=== PATIENT | male | born 1975 | race Asian ===

== ENCOUNTER 2022-04-23 11:28 | Emergency (ER) | payer MEDICAID ==
[2022-04-23] MEDS ORDERED: predniSONE 20 MG TABLET PO STA (11:43)
[2022-04-23] MEDS ORDERED: IPRATROPIUM/ALBUTEROL 3 ML NEB INH STA (11:43)
--- NOTE | 2022-04-23 11:58 | ED Physician Documentation ---
History of Present Illness - Stated complaint Stated Complaint: MED REFILL - Chief complaint Chief Complaint: Resp - History obtained from History obtained from: Patient - History of Present Illness Pain level max: 0 Pain level now: 0 - Additonal information Additional information: Patient is a 46-year-old male who just moved here from [place]. He states that he is almost out of his albuterol inhaler and almost out of his DuoNeb nebulizer solution. He is requesting refills of both. Has had increasing shortness of breath over the past 2 to 3 days. No fevers. No chills. No cough. No nausea or vomiting. No chest pain. The symptoms are relieved with his albuterol and DuoNeb. Patient is a former smoker. Review of Systems Constitutional: denies: Fever, Chills PD PAST MEDICAL HISTORY - Present Medications Home Medications: Ambulatory Orders Medication Instructions Recorded Confirmed Albuterol Sulf [Ventolin Hfa 1 - 2 puffs INH Q4HR PRN #1 each 04/23/22 Inhaler] Ipratropium/Albuterol [Duoneb] 3 ml INH BID #60 each 04/23/22 predniSONE [Deltasone] 40 mg PO DAILY #10 tablet 04/23/22 - Allergies Allergies/Adverse Reactions: Allergies Allergy/AdvReac Type Severity Reaction Status Date / Time No Known Drug Allergies Allergy Verified 04/23/22 11:33 PD ED PE NORMAL - Vitals Vital signs reviewed: Yes - General General: Alert and oriented X 3, No acute distress - HEENT HEENT: PERRL, Moist mucous membranes - Neck Neck: Supple, no meningeal sign - Cardiac Cardiac: RRR - Respiratory Respiratory: No respiratory distress, Other (Mildly diminished breath sounds bilaterally with mild wheezing) - Abdomen Abdomen: Soft, Non tender, Non distended - Derm Derm: Warm and dry - Extremities Extremities: No edema, No calf tenderness / cord - Neuro Neuro: Alert and oriented X 3 - Psych Psych: Normal mood, Normal affect Results - Vitals Vitals: Vital Signs - 24 hr 04/23/22 04/23/22 04/23/22 11:33 12:03 12:20 Temperature 36.5 C Heart Rate 96 89 94 Respiratory 18 16 18 Rate Blood Pressure 129/67 124/77 O2 Saturation 97 98 Oxygen O2 Source Room air PD Medical Decision Making - ED course Complexity details: considered differential, d/w patient ED course: 46-year-old male requesting refill of his asthma medications. We will refill his albuterol and DuoNeb solution. We will also prescribe a short course of steroids. We will have him follow-up with a local clinic and establish with a local PCP for further care. Patient counseled regarding signs and symptoms for which I believe and urgent re-evaluation would be necessary. Patient with good understanding of and agreement to plan and is comfortable going home at this time This document was made in part using voice recognition software. While efforts are made to proofread this document, sound alike and grammatical errors may occur. No hypoxia. No respiratory distress. Departure - Departure Disposition: Home, Self Care Clinical Impression: Asthma Qualifiers: Asthma severity: unspecified severity Asthma persistence: unspecified Asthma complication type: unspecified Qualified Code(s): J45.909 - Unspecified asthma, uncomplicated Condition: Good Instructions: ED Reactive Airway Disease Follow-Up: [facility] [Provider Group] [facility] [Provider Group] [facility] [Provider Group] Prescriptions: Albuterol Sulf [Ventolin Hfa Inhaler] 1 - 2 puffs INH Q4HR PRN #1 each PRN Reason: Shortness Of Air/Wheezing predniSONE [Deltasone] 40 mg PO DAILY #10 tablet Ipratropium/Albuterol [Duoneb] 3 ml INH BID #60 each Comments: Please follow-up with either the walk-in clinic or one of the primary care clinics for further care. Please return if you worsen. The prescriptions were sent to the [facility] pharmacy. Discharge Date/Time: 04/23/22 12:20
[2022-04-23 12:20] VITALS: BP 124/77
== END 2022-04-23 12:20 | disposition home or self-care (01) ==
LOC: ED 11:28
DX: Z76.0 Encounter for issue of repeat prescription (principal); J45.909 Unspecified asthma, uncomplicated; Z87.891 Personal history of nicotine dependence
CPT/HCPCS: 94640; 94664; 99283; 99284; J7512

== ENCOUNTER 2022-06-06 22:07 | Emergency (ER) | payer MEDICAID ==
[2022-06-06] MEDS ORDERED: IPRATROPIUM/ALBUTEROL 3 ML NEB INH STA (22:28)
[2022-06-06] MEDS ORDERED: predniSONE 20 MG TABLET PO STA (22:28)
[2022-06-06] MEDS ORDERED: SODIUM CHLORIDE 0.9% 1,000 ML IV STA (22:29)
--- NOTE | 2022-06-06 23:41 | XRAY Report ---
PROCEDURE: Chest 1 View X-Ray INDICATIONS: SOA TECHNIQUE: One view of the chest was acquired. COMPARISON: None. FINDINGS: Surgical changes and devices: None. Lungs and pleura: No pleural effusions or pneumothorax. Lungs are clear. Mediastinum: Mediastinal contours appear normal. Heart size is normal. Bones and chest wall: No suspicious bony lesions. Overlying soft tissues appear unremarkable. IMPRESSION: 1. No acute cardiopulmonary disease. Reviewed by: Calos Funes MD on 06/06/2022 11:39 PM PDT Approved by: Calos Funes MD on 06/06/2022 11:39 PM PDT Station ID: [id number]
[2022-06-06] MEDS ORDERED: METOPROLOL SUCCINATE 25 MG TABLET PO STA (23:56)
[2022-06-07] MEDS ORDERED: ALBUTEROL NEB 2.5 MG/3 ML INH STA (00:13)
[2022-06-07] MEDS ORDERED: METOPROLOL 5 MG/5 ML VIAL IVP STA (00:48)
[2022-06-07 00:55] LABS: BASOPHILS % (AUTO) 0.7 %; EOSINOPHILS % (AUTO) 10.4 %; HCT - HEMATOCRIT 45.8 % (42.0-52.0); HGB - HEMOGLOBIN 15.1 g/dL (14.0-18.0); MEAN CORPUSCULAR HEMOGLOBIN 26.4 pg (27.0-31.0); MEAN CORPUSCULAR VOLUME 80.2 fL (80.0-94.0); MEAN PLATELET VOLUME 9.9 fL (7.4-11.4); MONOCYTES % (AUTO) 9.1 %; NEUTROPHILS % (AUTO) 43.6 %; PLT - PLATELET COUNT 186 10^3/uL (130-450); RED BLOOD COUNT 5.71 10^6/uL (4.70-6.10); RED CELL DISTRIBUTION WIDTH 15.4 % (12.0-15.0); WHITE BLOOD COUNT 10.7 x10^3/uL (4.8-10.8)
[2022-06-07 01:01] LABS: ABNORMAL LYMPHS % (MANUAL) 0 %
[2022-06-07 01:13] LABS: BAND NEUTROPHILS % (MANUAL) 1 %; DIFFERENTIAL COMMENT MANUAL DIFFERENTIAL; EOSINOPHILS # (MANUAL) 1.2 10^3/uL (0-0.7); LYMPHOCYTES # (MANUAL) 3.7 10^3/uL (1.5-3.5); LYMPHOCYTES % (MANUAL) 35 %; MONOCYTES # (MANUAL) 0.2 10^3/uL (0.0-1.0); NEUTROPHILS # (MANUAL) 5.6 10^3/uL (1.5-6.6); PLATELET ESTIMATE, MANUAL NORMAL (130-450,000) (NORMAL); PLATELET MORPHOLOGY NORMAL APPEARANCE (NORMAL); RBC MORPHOLOGY (MULTIPLE) NORMAL APPEARANCE (NORMAL); WBC MORPHOLOGY (MULTIPLE) NORMAL APPEARANCE (NORMAL)
[2022-06-07] MEDS ORDERED: diltiaZEM INJ 5 MG/ML VIAL IVP STA ×2 (01:15→02:09)
[2022-06-07 01:17] LABS: ALBUMIN 3.9 g/dL (3.2-5.5); ALBUMIN/GLOBULIN RATIO 1.3 (1.0-2.2); BILIRUBIN,TOTAL 0.8 mg/dL (0.2-1.0); CALCIUM 8.7 mg/dL (8.5-10.3); CREATININE 0.8 mg/dL (0.6-1.2); MAGNESIUM 1.9 mg/dL (1.7-2.8); POTASSIUM 3.6 mmol/L (3.5-5.0)
[2022-06-07] MEDS ORDERED: SODIUM CHLORIDE 0.9% 500 ML IV STA (01:18)
[2022-06-07] MEDS ORDERED: iohexoL-300 100 ML VIAL ONE (01:25)
--- NOTE | 2022-06-07 02:16 | CT Report ---
PROCEDURE: ANGIO CHEST W/WO INDICATIONS: afib/tachy/soa CONTRAST: 100 ML OMNI 300 AT 4 ML/SEC WITH SURESTART DELAY. TECHNIQUE: After the administration of intravenous contrast, 2 mm axial images were acquired from the pulmonary apices to the posterior costophrenic angles during the arterial phase. In addition, 1 mm lung kernel and 5 mm soft tissue kernel reconstructions were performed. 3-dimensional coronal oblique maximum int ensity projection (MIP) reformats, 8 mm axial MIP, and 5 mm coronal and sagittal MPR reformats were t hen performed through the thorax. For radiation dose reduction, the following was used: automated exp osure control, adjustment of mA and/or kV according to patient size. COMPARISON: Chest x-ray 06/06/2022 FINDINGS: Image quality: There is mild motion artifact limiting evaluation. Pulmonary arteries: Pulmonary arteries demonstrate no intraluminal filling defects to suggest centra l pulmonary embolism. Evaluation of distal subsegmental branches is limited in the lung bases due to motion artifact. Lower Neck: No lymphadenopathy by size criteria. Thyroid: Visualized thyroid demonstrates no discrete nodules. Axillae: No lymphadenopathy by size criteria. Chest Wall: Unremarkable. Bones: Visualized osseous structures demonstrate no suspicious lesions. Lungs and Airways: There are a few patchy airspace opacities within the right lower lobe consistent w ith consolidation, with evaluation limited by motion artifact. There is also an indistinct ground gla ss opacity in the left lower lobe. A pulmonary nodule measuring up to 0.4 cm is demonstrated in the l eft lower lobe on series 6 image 210. There are mild paraseptal edematous changes bilaterally. The tr achea and central airways are patent. Pleura: No pneumothorax or pleural effusions. Heart: Heart size is normal. No pericardial effusion. Thoracic Vessels: The thoracic aorta is normal in size. Mediastinum and [place]: No lymphadenopathy by size criteria. Esophagus: No wall thickening. No hiatal hernia. Abdomen: Visualized upper abdominal solid organs appear normal in the early arterial phase of enhanc ement. IMPRESSION: 1. No evidence of central pulmonary embolism. Evaluation of distal subsegmental branches is limited i n the lung bases due to motion artifact. 2. Patchy areas of consolidation in the right lower lobe and to a lesser extent in the left lower lob e suggestive of pneumonia. 3. Small 0.4 cm left lower lobe pulmonary nodule. A follow-up CT is recommended in 12 months to demon strate stability. Reviewed by: Calos Funes MD on 06/07/2022 2:15 AM PDT Approved by: Calos Funes MD on 06/07/2022 2:15 AM PDT Station ID: [id number]
[2022-06-07] MEDS ORDERED: AMOXICILLIN 250 MG CAPSULE PO STA (02:25)
--- NOTE | 2022-06-07 02:25 | ED Physician Documentation ---
PD HPI DYSPNEA - Stated complaint Stated Complaint: ASTHMA - Chief complaint Chief Complaint: Resp - History obtained from History obtained from: Patient - Additional information Additional information: Patient is a 46-year-old male with a history of asthma and atrial fibrillation presenting for evaluation of feeling short of breath. Patient states for the last 2 days he is had increasing shortness of breath and needing to use his inhaler more than usual without any relief. Reports having a cough productive of clear phlegm. He denies fever, chest pain, abdominal pain, vomiting, leg swelling. He has a history of atrial fibrillation and is prescribed metoprolol. He states he just got back on this medication 2 weeks ago. He has not taken his dose tonight. He no longer smokes and quit smoking over a year ago. Review of Systems Constitutional: denies: Fever Cardiac: denies: Chest pain / pressure Respiratory: reports: Dyspnea, Cough GI: denies: Abdominal Pain, Vomiting Musculoskeletal: denies: Extremity swelling Neurologic: denies: Headache PD PAST MEDICAL HISTORY - Past Medical History Cardiovascular: Atrial fibrillation Respiratory: Asthma - Past Surgical History Past Surgical History: Yes - Present Medications Home Medications: Ambulatory Orders Medication Instructions Recorded Confirmed Albuterol Sulf [Ventolin Hfa 1 - 2 puffs INH Q4HR PRN #1 each 04/23/22 Inhaler] Ipratropium/Albuterol [Duoneb] 3 ml INH BID #60 each 04/23/22 predniSONE [Deltasone] 40 mg PO DAILY #10 tablet 04/23/22 Albuterol 2.5 mg INH Q4H PRN #30 ml 06/07/22 Albuterol Sulf [Ventolin Hfa 1 - 2 puffs INH Q4HR PRN #1 each 06/07/22 Inhaler] Amoxicillin 1,000 mg PO TID 5 Days #30 cap 06/07/22 predniSONE [Deltasone] 60 mg PO DAILY 4 Days #12 tablet 06/07/22 - Allergies Allergies/Adverse Reactions: Allergies Allergy/AdvReac Type Severity Reaction Status Date / Time No Known Drug Allergies Allergy Verified 04/23/22 11:33 - Social History Does the pt smoke?: No Smoking Status: Former smoker Does the pt drink ETOH?: No Does the pt have substance abuse?: No - Immunizations Immunizations are current?: Yes - POLST Patient has POLST: No PD ED PE NORMAL - General General: Alert and oriented X 3, No acute distress, Well developed/nourished - HEENT HEENT: Atraumatic - Neck Neck: Supple, no meningeal sign - Cardiac Cardiac: Other (Irregularly irregular, Tachycardic) - Respiratory Respiratory: Other (Tachypneic, diffuse wheezing) - Abdomen Abdomen: Soft, Non tender - Derm Derm: Warm and dry - Extremities Extremities: No edema - Neuro Neuro: Normal speech Results - Vitals Vitals: Vital Signs - 24 hr 06/06/22 06/06/22 06/06/22 22:10 22:45 23:30 Temperature 36.6 C Heart Rate 110 H 96 82 Respiratory 30 H 20 19 Rate Blood Pressure 123/73 155/91 H O2 Saturation 97 100 06/06/22 06/07/22 06/07/22 23:50 00:12 00:26 Temperature Heart Rate 138 H 156 H 145 H Respiratory 20 21 22 Rate Blood Pressure 140/90 H 144/84 H O2 Saturation 95 96 06/07/22 06/07/22 06/07/22 00:57 01:05 01:11 Temperature Heart Rate 150 H 133 H 112 H Respiratory Rate Blood Pressure 124/77 126/72 120/87 H O2 Saturation 06/07/22 06/07/22 06/07/22 01:20 02:22 02:28 Temperature Heart Rate 130 H 118 H 87 Respiratory Rate Blood Pressure 133/90 H 111/75 106/71 O2 Saturation 06/07/22 06/07/22 02:50 03:12 Temperature 37.2 C Heart Rate 95 92 Respiratory 21 25 H Rate Blood Pressure 131/70 H 108/77 O2 Saturation 95 95 Oxygen O2 Source Room air - EKG (time done) 0000 EKG releavant findings:: EKG personally interpreted by author of this note. Relevant findings are: Rate 136, atrial fibrillation, no STEMI, no prior for comparison Rate: Rate (enter#) (136) Rhythm: Atrial fibrillation Ischemia: No: ST elevation c/w ischemia Compare to prior EKG: Old EKG unavailable - Labs Labs: Laboratory Tests 06/06/22 06/06/22 06/06/22 22:23 22:23 22:30 WBC 10.7 RBC 5.71 Hgb 15.1 Hct 45.8 MCV 80.2 MCH 26.4 L MCHC 33.0 RDW 15.4 H Plt Count 186 MPV 9.9 Neut # (Auto) Not Reportable Lymph # (Auto) Not Reportable [place] # (Auto) Not Reportable Eos # (Auto) Not Reportable Baso # (Auto) Not Reportable Absolute Nucleated RBC Not Reportable Total Counted 100 Band Neuts % (Manual) 1 Abnorm Lymph % (Manual) 0 Nucleated RBC % Not Reportable Neutrophils # (Manual) 5.6 Lymphocytes # (Manual) 3.7 H Monocytes # (Manual) 0.2 Eosinophils # (Manual) 1.2 H Basophils # (Manual) 0.0 Differential Comment MANUAL DIFFERENTIAL WBC Morphology NORMAL APPEARANCE Platelet Estimate NORMAL (130-450,000) Platelet Morphology NORMAL APPEARANCE RBC Morph Micro Appear NORMAL APPEARANCE Sodium 136 Potassium 3.6 Chloride 105 Carbon Dioxide 26 Anion Gap 5.0 L BUN 19 Creatinine 0.8 Estimated GFR (MDRD) 104 Glucose 115 H Calcium 8.7 Magnesium 1.9 Total Bilirubin 0.8 AST 26 ALT 24 Alkaline Phosphatase 67 Total Protein 7.0 Albumin 3.9 Globulin 3.1 Albumin/Globulin Ratio 1.3 SARS-CoV-2 (PCR) NOT DETECTED PD Medical Decision Making - ED course Complexity details: reviewed results, re-evaluated patient, d/w patient ED course: Is a 46-year-old with a history of asthma presenting for evaluation of shortness of breath. He additionally has a history of atrial fibrillation and is on metoprolol.Initially found to be tachypneic and wheezing. Given several neb treatments, p.o. prednisone.After initial neb treatments heart rate significantly increased and EKG demonstrated A-fib with RVR. Patient had reported he had not taken his metoprolol that evening.He was given p.o. metoprolol as well as a dose of IV Lopressor.CBC and chemistries were reviewed without significant findings. A chest x-ray which I also reviewed did not show any focal consolidation, pneumothorax or effusion.Patient denied chest pain. He remained persistently tachycardic therefore I ordered a CT angio to evaluate for pulmonary embolism. CT angio is negative for PE but does show consolidation concerning for pneumonia. There is an incidentally a pulmonary nodule which I also reviewed with the patient and he understands the need for follow-up.Patient was given two small doses of IV Cardizem With continued improvement in his rate. He did not require further neb treatments.He is able to ambulate to the bathroom without any difficulty. At this time I do not feel he needs admission for treatment of his asthma. His chads Vascor in regards to A-fib is 0. He does not require anticoagulation. He is counseled on need for close follow-up as well as concerning symptoms to return for. Departure - Departure Disposition: 01 Home, Self Care Clinical Impression: CAP (community acquired pneumonia), Pulmonary nodule, Asthma exacerbation, Atrial fibrillation Condition: Stable Instructions: ED Afib, ED Bronchitis Asthmatic, ED Pneumonia Adult Follow-Up: [facility] [Provider Group] Prescriptions: Albuterol Sulf [Ventolin Hfa Inhaler] 1 - 2 puffs INH Q4HR PRN #1 each PRN Reason: Shortness Of Air/Wheezing Albuterol 2.5 mg INH Q4H PRN #30 ml PRN Reason: Wheezing Amoxicillin 1,000 mg PO TID 5 Days #30 cap predniSONE [Deltasone] 60 mg PO DAILY 4 Days #12 tablet Comments: You were evaluated for an asthma attack.Your work-up today shows that you have pneumonia which is likely triggering your asthma. I am starting you on an antibiotic in addition to prednisone.The breathing treatments made your heart rate go faster which can be dangerous when you have atrial fibrillation. We did give you medicine to help lower your heart rate. Please make sure that you are taking your metoprolol as prescribed. You do need close follow-up with your primary care doctor. Your CT scan shows a small pulmonary nodule in your left lung. You need follow-up in 12 months to make sure that this is not growing and becoming concerning for cancer. I have sent your prescriptions to [facility] in [place]. Please follow-up with a primary care provider or at the walk-in clinic. If you have any new or worsening symptoms please return to the emergency department. IMPRESSION: 1. No evidence of central pulmonary embolism. Evaluation of distal subsegmental branches is limited in the lung bases due to motion artifact. 2. Patchy areas of consolidation in the right lower lobe and to a lesser extent in the left lower lobe suggestive of pneumonia. 3. Small 0.4 cm left lower lobe pulmonary nodule. A follow-up CT is recommended in 12 months to demonstrate stability. Discharge Date/Time: 06/07/22 03:16
[2022-06-07] MEDS ORDERED: iohexoL-300 100 ML VIAL IVP ONE (02:30)
[2022-06-07 03:16] VITALS: BP 108/77
== END 2022-06-07 03:16 | disposition home or self-care (01) ==
LOC: ED 22:07
DX: J18.9 Pneumonia, unspecified organism (principal); R91.1 Solitary pulmonary nodule; J45.901 Unspecified asthma with (acute) exacerbation; I48.91 Unspecified atrial fibrillation; Z87.891 Personal history of nicotine dependence
CPT/HCPCS: 36415; 71045; 71275; 80053; 83735; 85025; 87635; 93005; 94640; 96361; 96374; 96375; 96376; 99284; 99285; A9270; J7512; Q9967